=== PATIENT | male | born 1990 | race Caucasian/White ===

== ENCOUNTER 2019-06-21 17:59 | Emergency (ER) | payer BC ==
[~2019-06-21] VITALS: Ht 170.2 cm; Wt 104.3 kg
[2019-06-21 18:11] VITALS: BP 111/74
[2019-06-21] MEDS ORDERED: CEFTRIAXONE 1 G VIAL IM ONE (18:30)
[2019-06-21] MEDS ORDERED: CEFTRIAXONE 1 G VIAL ONE (18:44)
[2019-06-21] MEDS ORDERED: LIDOCAINE /MPF 1% VIAL 5 ML VIAL ONE (18:44)
== END 2019-06-21 19:21 | disposition home or self-care (01) ==
LOC: ER 18:07
DX: L03.312 Cellulitis of back [any part except buttock and flank] (principal); R23.4 Changes in skin texture; F90.9 Attention-deficit hyperactivity disorder, unspecified type; Z88.0 Allergy status to penicillin; Z88.6 Allergy status to analgesic agent
CPT/HCPCS: 96372; 99283; J0696; J3490